=== PATIENT | male | born 1955 | race Caucasian/White ===

== ENCOUNTER 2024-07-03 05:42 | Inpatient (IN) ==
[2024-06-24 14:48] LABS: Basophils # (Auto) 0.04 K/mcL (0.00-0.30); Basophils % (Auto) 0.4 % (0.0-2.0); Eosinophils # (Auto) 0.11 K/mcL (0.00-0.70); Hematocrit 45.8 % (40.1-51.0); Hemoglobin 15.4 g/dL (13.7-17.5); Lymphocytes # (Auto) 3.41 K/mcL (1.50-4.80); Lymphocytes % (Auto) 32.5 % (15.5-49.0); Mean Cell Volume 93.5 fL (80.0-100.0); Mean Corpuscular HGB Conc 33.6 g/dL (31.0-36.0); Mean Platelet Volume 10.2 fL (8.8-12.5); Monocytes # (Auto) 0.74 K/mcL (0.10-0.90); Monocytes % (Auto) 7.1 % (1.0-12.0); Platelet Count 168 K/mcL (140-440); Red Cell Distribution Width 14.2 % (11.5-14.5); WBC 10.5 K/mcL (4.5-11.0)
[2024-06-24 15:04] LABS: ALT/SGPT 39 U/L (<40); AST/SGOT 28 U/L (<40); Albumin 4.2 gm/dL (3.2-5.2); Albumin/Globulin Ratio 1.4 (1.0-2.3); Alkaline Phosphatase 90 U/L (39-117); Blood Urea Nitrogen 8 mg/dL (8-23); Calcium 9.4 mg/dL (8.6-10.4); Carbon Dioxide 28 mmol/L (22-30); Chloride 103 mmol/L (96-108); Globulin 2.9 gm/dL (2.2-3.7); Glomerular Filtration Rate 76; Glucose 92 mg/dL (70-105); Sodium 141 mmol/L (133-145)
[2024-06-24 16:37] LABS: INR 0.9 (0.9-1.1); Prothrombin Time 12.5 sec (11.9-14.5)
[2024-07-03] MEDS ORDERED: fentaNYL 100 MCG/2 ML VIAL ONE ×2 (07:09→07:56)
[2024-07-03] MEDS ORDERED: PROPOFOL 200 MG/20 ML VIAL IV ONE (07:10)
[2024-07-03] MEDS ORDERED: KETAMINE 50 MG/ML ML ONE (07:10)
[2024-07-03] MEDS ORDERED: ONDANSETRON 4 MG/2 ML VIAL ONE (07:12)
[2024-07-03] MEDS ORDERED: DEXAMETHASONE 10 MG/ML VIAL ONE (07:12)
[2024-07-03] MEDS ORDERED: LIDOCAINE 2% PF 5 ML VIAL ONE (07:12)
[2024-07-03] MEDS ORDERED: GLYCOPYRROLATE 0.2 MG/ML VIAL IV ONE (07:12)
[2024-07-03] MEDS ORDERED: ROCURONIUM 10 MG/ML ML IV ONE ×2 (07:12→08:13)
[2024-07-03] MEDS ORDERED: SUCCINYLCHOLINE 200 MG/10 ML VIAL IV ONE (07:12)
[2024-07-03] MEDS ORDERED: FAMOTIDINE/PF 20 MG/2 ML VIAL IV ONE (07:14)
[2024-07-03] MEDS ORDERED: MAGNESIUM SULFATE 2 GM/50 ML BAG IV ONE (07:16)
[2024-07-03] MEDS: CEFEPIME 2 GM VIAL IV SCH (07:19)
[2024-07-03] MEDS: metroNIDAZOLE 500 MG/100 ML BAG IV SCH (07:20)
[2024-07-03] MEDS ORDERED: ePHEDrine 50 MG/5 ML SYRINGE (ANEST) IV ONE (07:51)
[2024-07-03] MEDS: VANCOMYCIN 1 GM VIAL IP SCH (08:03)
[2024-07-03] MEDS: GENTAMICIN SULFATE 800 MG/20 ML VIAL IR ONE (08:03)
[2024-07-03] MEDS ORDERED: methylPREDNISolone SOD SUCC 125 MG/2 ML VIAL ONE (08:13)
[2024-07-03] MEDS ORDERED: SUGAMMADEX SODIUM 200 MG/2 ML VIAL IV ONE (08:30)
[2024-07-03] MEDS ORDERED: NALOXONE HCL 0.4 MG/ML VIAL IV PRN (08:32)
[2024-07-03] MEDS ORDERED: DROPERIDOL 5 MG/2 ML VIAL IV PRN (08:32)
[2024-07-03] MEDS ORDERED: ONDANSETRON 4 MG/2 ML VIAL IV PRN ×2 (08:32→08:55)
[2024-07-03] MEDS ORDERED: LACTATED RINGERS 250 ML IV PRN (08:32)
[2024-07-03] MEDS ORDERED: IPRATROPIUM/ALBUTEROL 3 ML AMPUL.NEB NEB PRN (08:32)
[2024-07-03] MEDS ORDERED: BENZOCAINE/MENTHOL 1 LOZENGE PO PRN (08:32)
[2024-07-03] MEDS ORDERED: ROPIVACAINE HCL/PF 30 ML VIAL IJ ONE (08:34)
[2024-07-03] MEDS: ACETAMINOPHEN 1,000 MG/100 ML BAG IV ONE (09:06)
[2024-07-03] MEDS: fentaNYL 100 MCG/2 ML VIAL IV PRN ×2 (09:36→12:35)
[2024-07-03] MEDS: KETOROLAC 15 MG/ML VIAL IV PRN (09:38)
[2024-07-03] MEDS: METHOCARBAMOL 1,000 MG/10 ML VIAL IV PRN (09:39)
[2024-07-03] MEDS: HYDROmorphone 0.5 MG/0.5 ML SYRINGE IV PRN (09:43)
[2024-07-03] MEDS: 0.9 % SODIUM CHLORIDE 1,000 ML IV SCH (10:37)
[2024-07-03] MEDS: LACTATED RINGERS 1,000 ML IV SCH (10:50)
[2024-07-03] MEDS: METOCLOPRAMIDE 10 MG/2 ML VIAL IV SCH (13:27)
[2024-07-03] MEDS: ACETAMINOPHEN 1,000 MG/100 ML BAG IV SCH (17:38)
[2024-07-03] MEDS: PANTOPRAZOLE 40 MG VIAL IV SCH (17:38)
[2024-07-03] MEDS: oxyCODONE IR 5 MG TABLET PO PRN (17:39)
[2024-07-03] MEDS: CEFEPIME 1 GM VIAL IV SCH (21:29)
[2024-07-03] MEDS: PREGABALIN 150 MG CAPSULE PO SCH (21:30)
[2024-07-03] MEDS: ZOLPIDEM 5 MG TABLET PO SCH (21:30)
[2024-07-03] MEDS: OLMESARTAN MEDOXOMIL 20 MG TABLET PO SCH (21:30)
[2024-07-03] MEDS: NORTRIPTYLINE 10 MG CAPSULE PO SCH (21:30)
[2024-07-04 06:38] LABS: Basophils # (Auto) 0.01 K/mcL (0.00-0.30); Basophils % (Auto) 0.1 % (0.0-2.0); Eosinophils # (Auto) 0 K/mcL (0.00-0.70); Eosinophils % (Auto) 0 % (0.0-7.0); Hematocrit 39.3 % (40.1-51.0); Hemoglobin 13.5 g/dL (13.7-17.5); Lymphocytes % (Auto) 11.4 % (15.5-49.0); Mean Cell Volume 95.6 fL (80.0-100.0); Mean Corpuscular HGB Conc 34.4 g/dL (31.0-36.0); Mean Platelet Volume 10.6 fL (8.8-12.5); Monocytes # (Auto) 0.29 K/mcL (0.10-0.90); Monocytes % (Auto) 3.7 % (1.0-12.0); Neutrophils % (Auto) 84.5 % (38.0-78.0); Platelet Count 143 K/mcL (140-440); RBC 4.11 M/mcL (4.63-6.08); Red Cell Distribution Width 13.9 % (11.5-14.5); WBC 7.9 K/mcL (4.5-11.0)
[2024-07-04 07:17] LABS: ALT/SGPT 27 U/L (<40); AST/SGOT 35 U/L (<40); Albumin 3.9 gm/dL (3.2-5.2); Albumin/Globulin Ratio 1.6 (1.0-2.3); Alkaline Phosphatase 65 U/L (39-117); Bilirubin,Direct 0.5 mg/dL (<0.3); Bilirubin,Total 1.1 mg/dL (0.1-1.0); Blood Urea Nitrogen 14 mg/dL (8-23); Calcium 8.6 mg/dL (8.6-10.4); Carbon Dioxide 23 mmol/L (22-30); Chloride 102 mmol/L (96-108); Globulin 2.4 gm/dL (2.2-3.7); Glomerular Filtration Rate 76; Glucose 136 mg/dL (70-105); Lactate Dehydrogenase 183 U/L (135-225); Phosphorous 3.1 mg/dL (2.5-4.5); Potassium 5.1 mmol/L (3.3-5.1); Sodium 136 mmol/L (133-145); Triglycerides 130 mg/dL (<150); Uric Acid 6.3 mg/dL (2.5-8.0)
[2024-07-04] MEDS: POLYETHYLENE GLYCOL 3350 17 GM PACKET PO SCH (17:41)
[2024-07-05 06:32] LABS: Basophils # (Auto) 0.03 K/mcL (0.00-0.30); Basophils % (Auto) 0.3 % (0.0-2.0); Eosinophils # (Auto) 0.01 K/mcL (0.00-0.70); Eosinophils % (Auto) 0.1 % (0.0-7.0); Hematocrit 42.2 % (40.1-51.0); Hemoglobin 13.9 g/dL (13.7-17.5); Lymphocytes # (Auto) 2.54 K/mcL (1.50-4.80); Lymphocytes % (Auto) 24.8 % (15.5-49.0); Mean Cell Volume 97.5 fL (80.0-100.0); Mean Corpuscular HGB Conc 32.9 g/dL (31.0-36.0); Monocytes # (Auto) 0.65 K/mcL (0.10-0.90); Monocytes % (Auto) 6.3 % (1.0-12.0); Neutrophils % (Auto) 68.3 % (38.0-78.0); Platelet Count 133 K/mcL (140-440); RBC 4.33 M/mcL (4.63-6.08); Red Cell Distribution Width 14.2 % (11.5-14.5); WBC 10.3 K/mcL (4.5-11.0)
[2024-07-05 07:00] LABS: ALT/SGPT 29 U/L (<40); AST/SGOT 52 U/L (<40); Albumin 3.9 gm/dL (3.2-5.2); Albumin/Globulin Ratio 1.6 (1.0-2.3); Alkaline Phosphatase 63 U/L (39-117); Bilirubin,Direct 0.4 mg/dL (<0.3); Bilirubin,Total 0.8 mg/dL (0.1-1.0); Blood Urea Nitrogen 13 mg/dL (8-23); Calcium 8.8 mg/dL (8.6-10.4); Carbon Dioxide 26 mmol/L (22-30); Chloride 105 mmol/L (96-108); Globulin 2.4 gm/dL (2.2-3.7); Glomerular Filtration Rate 90; Glucose 99 mg/dL (70-105); Lactate Dehydrogenase 215 U/L (135-225); Phosphorous 2.1 mg/dL (2.5-4.5); Potassium 4.3 mmol/L (3.3-5.1); Sodium 141 mmol/L (133-145); Triglycerides 185 mg/dL (<150); Uric Acid 5.3 mg/dL (2.5-8.0)
[2024-07-05 11:47] VITALS: TEMP 97.7; O2SAT 94
[2024-07-05] MEDS ORDERED: POLYETHYLENE GLYCOL 3350 17 GM PACKET PO SCH (17:30)
== END 2024-07-05 14:35 | disposition home or self-care (01) | DRG 355 ==
LOC: MEDSUR 05:42 → EDSTATUS 07:30
PROVIDERS: ADMIT Family Medicine Adult Medicine; ATTEND Family Medicine Adult Medicine